=== PATIENT | male | born 1980 | race Caucasian/White ===

== ENCOUNTER 2017-02-03 18:58 | Emergency (ER) | payer SELFPAY ==
[~2017-02-03] VITALS: Ht 188 cm; Wt 95.3 kg
[2017-02-03 19:13] VITALS: BP 132/86
== END 2017-02-03 22:00 | disposition left against medical advice (07) ==
LOC: ER 19:01
DX: R53.1 Weakness (principal); Z53.21 Procedure and treatment not carried out due to patient leaving prior to being seen by health care provider